=== PATIENT | female | born 1995 | race Caucasian/White ===

== ENCOUNTER 2024-02-27 12:59 | Emergency (ER) | payer SELFPAY ==
[~2024-02-27] VITALS: Ht 175.3 cm; Wt 127.0 kg
[2024-02-27 13:08] VITALS: BP 123/72; PULSE 77; RESP 18; TEMP 97.9; O2SAT 100
[2024-02-27] MEDS ORDERED: AMOX1TAB8 PO (14:23)
[2024-02-27] MEDS ORDERED: IBUP-2218 PO (14:23)
[2024-02-27] MEDS ORDERED: BACI-418 TP (14:23)
[2024-02-27] MEDS ORDERED: cefTRIAXone 1,000 MG VIAL ONE (14:27)
[2024-02-27] MEDS ORDERED: LIDOCAINE MPF 1% 5 ML ONE (14:28)
[2024-02-27] MEDS: cefTRIAXone 1,000 MG in LIDOCAINE MPF 1% 2.1 ML IM ONE (14:43)
[2024-02-27] MEDS: IBUPROFEN 600 MG TAB PO ONE (14:43)
[2024-02-27] MEDS: BACITRACIN OINT 500 UNITS/GM PKT TP ONE (14:44)
== END 2024-02-27 14:45 | disposition home or self-care (01) ==
LOC: MED 12:59
DX: S61.251A Open bite of left index finger without damage to nail, initial encounter (principal); S61.252A Open bite of right middle finger without damage to nail, initial encounter; R03.0 Elevated blood-pressure reading, without diagnosis of hypertension; Z79.899 Other long term (current) drug therapy; W55.01XA Bitten by cat, initial encounter; Y93.89 Activity, other specified; Y92.89 Other specified places as the place of occurrence of the external cause; Y99.8 Other external cause status
CPT/HCPCS: 96372; 99283; J0696; J2001